=== PATIENT | female | born 1965 ===

== ENCOUNTER → 2016-07-22 | Outpatient (CLI) | payer BC ==
[2016-07-22 18:24] LABS: BASO % 0.5 %; BASO ABS # 0.03 K/uL (0-0.2); COMPLETE YES; EOS % 1.4 %; HEMATOCRIT 40.2 % (37-47); IG% 0.2 %; LYMPH % 31.2 %; LYMPH ABS # 1.82 K/uL (1.2-3.4); MEAN CELL VOLUME 86.3 fL (80-100); MEAN CORPUSCULAR HEMOGLOBIN 29.4 pg (25-34); MEAN CORPUSCULAR HGB CONC 34.1 g/dl (32-36); MEAN PLATELET VOLUME 9.8 fL (7.4-10.4); MONO % 10.8 %; NEUT % 55.9 %; PLATELET COUNT 330 K/uL (130-400); RED BLOOD COUNT 4.66 M/uL (4.2-5.4); WHITE BLOOD COUNT 5.83 K/uL (4.8-10.8)
[2016-07-22 18:37] LABS: BLOOD UREA NITROGEN 11 mg/dl (7-18); BUN/CREATININE RATIO 19.6 (10-20); CALCIUM 9.6 mg/dl (8.5-10.1); CARBON DIOXIDE 30 mmol/L (21-32); CHLORIDE 104 mmol/L (98-107); CREATININE 0.58 mg/dl (0.60-1.20); GLUCOSE 92 mg/dl (70-99); MAGNESIUM 2.4 mg/dl (1.8-2.4); SODIUM 140 mmol/L (136-145)
[2016-07-22 18:48] LABS: FERRITIN 16.5 ng/ml (8.0-388.0)
== END | disposition home or self-care (01) ==
LOC: C.LABMFLN 14:46
PROVIDERS: ATTEND Family Medicine
DX: R78.81 Bacteremia (principal); E87.6 Hypokalemia; R00.2 Palpitations; D64.9 Anemia, unspecified

== ENCOUNTER → 2017-04-20 | Outpatient (CLI) | payer BC ==
[2017-04-20 17:53] LABS: BASO % 0.7 %; BASO ABS # 0.04 K/uL (0-0.2); COMPLETE YES; EOS % 2.7 %; HEMATOCRIT 40.8 % (37-47); IG% 0.3 %; LYMPH % 29.6 %; LYMPH ABS # 1.77 K/uL (1.2-3.4); MEAN CELL VOLUME 88.3 fL (80-100); MEAN CORPUSCULAR HEMOGLOBIN 30.5 pg (25-34); MEAN CORPUSCULAR HGB CONC 34.6 g/dl (32-36); MONO % 9.5 %; NEUT % 57.2 %; PLATELET COUNT 353 K/uL (130-400); RED BLOOD COUNT 4.62 M/uL (4.2-5.4); WHITE BLOOD COUNT 5.98 K/uL (4.8-10.8)
[2017-04-20 18:03] LABS: ALT/SGPT 18 U/L (12-78); AMYLASE 64 U/L (25-115); BLOOD UREA NITROGEN 7 mg/dl (7-18); BUN/CREATININE RATIO 13.5 (10-20); CARBON DIOXIDE 31 mmol/L (21-32); CHLORIDE 103 mmol/L (98-107); CREATININE 0.55 mg/dl (0.60-1.20); GLUCOSE 85 mg/dl (70-99); POTASSIUM 3.3 mmol/L (3.5-5.1); SODIUM 140 mmol/L (136-145)
[2017-04-20 18:05] LABS: URINE APPEARANCE CLEAR (CLEAR); URINE BILIRUBIN NEG (NEG); URINE COLOR YELLOW; URINE NITRITE NEG (NEG); URINE PH 5.5 (4.5-7.5); URINE SPECIFIC GRAVITY 1.013 (1.000-1.030); UROBILINOGEN NEG (NEG)
[2017-04-20 18:06] LABS: ALB/GLOB RATIO 0.9 (0.9-2); ALKALINE PHOSPHATASE 70 U/L (45-117); AST/SGOT 13 U/L (15-37)
[2017-04-20 18:09] LABS: MANUAL MICROSCOPIC REQUIRED? NO; REVIEW REQ? YES
[2017-04-20 18:17] LABS: URINE EPITHELIAL CELL AUTO 0-5 /lpf (0-5)
== END | disposition home or self-care (01) ==
LOC: C.LABMFLN 16:25
PROVIDERS: ATTEND Family Medicine
DX: R10.13 Epigastric pain (principal); R10.31 Right lower quadrant pain; R19.4 Change in bowel habit